=== PATIENT | male | born 1985 | race Caucasian/White ===

== ENCOUNTER 2023-07-08 09:13 | Emergency (ER) | payer SELFPAY ==
[2023-07-08] MEDS ORDERED: Diphtheria,Pertussis(Acell),Tetanus Vaccine 0.5 ML Syringe IM ONE (09:28)
[2023-07-08] MEDS ORDERED: Lidocaine 1% with EPINEPHrine 1:100,000 10 ML MDV INJECT ONE (09:28)
[2023-07-08] MEDS ORDERED: Acetaminophen/HYDROcodone 325-5 MG Tab PO ONE (09:28)
[2023-07-08] MEDS ORDERED: Ondansetron 4 MG Tab.DIS PO ONE (09:28)
== END 2023-07-08 11:23 | disposition home or self-care (01) ==
LOC: MW.ED 09:13
DX: S81.012A Laceration without foreign body, left knee, initial encounter (principal); Z23 Encounter for immunization; Z88.1 Allergy status to other antibiotic agents; W20.8XXA Other cause of strike by thrown, projected or falling object, initial encounter; Y92.89 Other specified places as the place of occurrence of the external cause; Y99.0 Civilian activity done for income or pay
CPT/HCPCS: 12001; 73562; 90471; 90715; 99283; A9270

== ENCOUNTER 2023-07-11 16:35 | Emergency (ER) | payer SELFPAY ==
[2023-07-11] MEDS ORDERED: Sodium Chloride 0.9% 1,000 ML IV ONE (17:39)
[2023-07-11] MEDS ORDERED: Sodium Chloride 0.9% 10 ML Syringe FLUSH PRN (17:39)
[2023-07-11] MEDS ORDERED: LORazepam 2 MG/ML SDV IVPUSH ONE (17:39)
[2023-07-11] MEDS ORDERED: Ondansetron 4 MG/2 ML SDV IVPUSH ONE (17:39)
[2023-07-11] MEDS ORDERED: Sodium Chloride 0.9% 2.5 ML Syringe FLUSH PRN (17:39)
[2023-07-11 18:05] LABS: BASOPHILS PERCENT AUTO 0.4 % (0.0-1.5); EOSINOPHILS ABSOLUTE AUTO 0.2 K/uL (0.0-0.7); EOSINOPHILS PERCENT AUTO 1.7 % (0.0-7.0); HEMATOCRIT 50.3 % (38.0-50.0); HEMOGLOBIN 17.5 g/dL (13.0-17.0); LYMPHOCYTES ABSOLUTE AUTO 1.4 K/uL (0.6-2.4); LYMPHOCYTES PERCENT AUTO 12.7 % (16.0-40.0); MEAN CORPUSCULAR HEMOGLOBIN 30.6 pg (27.0-32.0); MEAN CORPUSCULAR HGB CONC 34.8 g/dL (31.0-37.0); MEAN CORPUSCULAR VOLUME 87.9 fL (80.0-98.0); MONOCYTES ABSOLUTE AUTO 1.1 K/uL (0.0-0.8); MONOCYTES PERCENT AUTO 9.5 % (0.0-15.0); NEUTROPHILS ABSOLUTE AUTO 8.4 K/uL (1.4-5.7); NEUTROPHILS PERCENT AUTO 75.7 % (48.0-80.0); NRBC ABSOLUTE 0 K/uL; PLATELET COUNT,PLT 298 K/uL (150-400); RED BLOOD CELL COUNT 5.72 M/uL (4.50-5.90); WHITE BLOOD CELL COUNT,WBC 11.07 K/uL (4.0-11.0)
[2023-07-11 18:36] LABS: A/G RATIO 1.2 (0.9-1.6); ALANINE AMINOTRANSFERASE,ALT 23 IU/L (14-63); ALBUMIN 4.4 g/dL (3.4-5.0); ALKALINE PHOSPHATASE 89 U/L (46-116); ASPARTATE AMNIOTRANSFERASE,AST 16 IU/L (15-37); BILIRUBIN TOTAL 0.7 mg/dL (0.2-1.0); BLOOD UREA NITROGEN,BUN 22 mg/dL (7.0-18.0); CALCIUM 9.4 mg/dL (8.5-10.1); CARBON DIOXIDE,CO2 25.3 mmol/L (21.0-32.0); CHLORIDE,CL 98 mmol/L (98-107); EST CRCL DRUG DOSING (CG) 94.56 mL/min; ESTIMATED GFR 99 mL/min (>60); GLUCOSE RANDOM 120 mg/dL (74-106); POTASSIUM,K 3.8 mmol/L (3.5-5.1); PROTEIN TOTAL,TP 8.2 g/dL (6.4-8.2); SODIUM,NA 135 mmol/L (136-148); TSH ULTRASENSITIVE 2.11 uIU/mL (0.36-3.74)
[2023-07-12] MEDS ORDERED: Apixaban 5 MG Tab PO STA (01:03)
[2023-07-12] MEDS ORDERED: Apixaban 5 MG Tab ONE (01:03)
== END 2023-07-12 01:24 | disposition home or self-care (01) ==
LOC: MW.ED 16:35
DX: I26.99 Other pulmonary embolism without acute cor pulmonale (principal); F17.210 Nicotine dependence, cigarettes, uncomplicated; Z88.1 Allergy status to other antibiotic agents
CPT/HCPCS: 36415; 71275; 73590; 80053; 83735; 84443; 84484; 85025; 85379; 93005; 93970; 96361; 96374; 96375; 99285; A9270; J2060; J2405; J3490; J7030; 93010; 99284

== ENCOUNTER 2023-08-10 05:53 | Emergency (ER) | payer MEDICAID | END 2023-08-10 07:59 | disposition home or self-care (01) | LOC: MW.ED 05:53 | DX: R06.02 Shortness of breath (principal); Z88.0 Allergy status to penicillin | CPT/HCPCS: 71046; 71046-26; 99282; 99284 ==

== ENCOUNTER 2023-08-21 19:39 | Emergency (ER) | payer OTHER, MEDICAID ==
[2023-08-21] MEDS ORDERED: Cyclobenzaprine 10 MG Tab PO ONE (21:18)
== END 2023-08-21 21:36 | disposition home or self-care (01) ==
LOC: MW.ED 19:39
DX: S16.1XXA Strain of muscle, fascia and tendon at neck level, initial encounter (principal); Z86.718 Personal history of other venous thrombosis and embolism; Z88.1 Allergy status to other antibiotic agents; Z79.01 Long term (current) use of anticoagulants; V89.2XXA Person injured in unspecified motor-vehicle accident, traffic, initial encounter
CPT/HCPCS: 70450; 71045; 72125; 73030; 99284; A9270; 99283